=== PATIENT | male | born 1960 | race Caucasian/White ===

== ENCOUNTER 2019-03-08 21:36 | Emergency (ER) ==
[2019-03-08 21:46] VITALS: BP 164/86; TEMP 98.4; BMI 28.0
[2019-03-08] MEDS ORDERED: LEVAQUIN PO STA (22:03)
[2019-03-08] MEDS ORDERED: NORCO 7.5-325 PO STA (22:04)
--- NOTE | 2019-03-08 22:06 | ED.PDOC ---
General ED Provider: Dr. OJSE WARREN-ER Chief Complaint: Earache Stated Complaint: my ear hurts and its swollen--[place] Time Seen by Physician: 22:05 Mode of Arrival: Walk-In Information Source: Patient Exam Limitations: No limitations Primary Care Provider: UZIEL DOWNING Nursing and Triage Documentation Reviewed and Agree: Yes Does patient meet sepsis criteria?: No System Inflammatory Response Syndrome: Not Applicable Sepsis Protocol: For patient's 13 years and over: Temp is 96.8 and below OR 101 and greater Pulse >90 BPM Resp >20/minute Acutely Altered Mental Status Are patient's symptoms suggestive of a new infection, such as: -Pneumonia -Skin, Soft Tissue -Endocarditis -UTI -Bone, Joint Infection -Implantable Device -Acute Abdominal Infection -Wound Infection -Meningitis -Blood Stream Catheter Infection -Unknown EENT Complaint Exam - Ear Complaint/Exam Onset/Duration: 2 days Symptoms Are: Still present Timing: Constant Initial Severity: Mild Current Severity: Moderate Character: Reports: Aching pain, Throbbing pain Aggravating: Reports: Tugging on ear Alleviating: Reports: None Associated Signs and Symptoms: Reports: Ear swelling, Discharge. Denies: Ear trauma Vesicles to External Pinna: No Vesicles to Tragus: No TMJ Tenderness: None Tragal Tenderness: Right External Canal: Erythema, Tenderness, Swelling Material in Canal: Present: Discharge Differential Diagnoses: Otitis Externa Review of Systems - Review Of Systems Constitutional: Reports: No symptoms Eyes: Reports: No symptoms Ears, Nose, Mouth, Throat: Reports: Ear pain, Ear discharge Respiratory: Reports: No symptoms Cardiac: Reports: No symptoms GI: Reports: No symptoms : Reports: No symptoms Musculoskeletal: Reports: No symptoms Skin: Reports: No symptoms Neurological: Reports: No symptoms Endocrine: Reports: No symptoms Hematologic/Lymphatic: Reports: No symptoms All Other Systems: Reviewed and Negative Past Medical History - Past Medical History Previously Healthy: Yes Endocrine: Reports: Unknown Cardiovascular: Reports: Unknown Respiratory: Reports: Unknown Hematological: Reports: Unknown Gastrointestinal: Reports: Unknown Genitourinary: Reports: Unknown Neuro/Psych: Reports: Unknown Musculoskeletal: Reports: Unknown Cancer: Reports: Unknown - Surgical History General Surgical History: Reports: Unknown - Family History Family History: Reports: Unknown - Social History Smoking Status: Former smoker Hx Substance Use: No Alcohol Screening: Occasionally - Immunizations Tetanus Shot up to Date: (UNKNOWN) Physical Exam - Physical Exam Appearance: Well-appearing, No pain distress, Well-nourished Pain Distress: Moderate Eyes: SELIN, EOMI, Conjunctiva clear ENT: Nose normal, Oropharynx normal Neck: Supple Respiratory: Airway patent, Breath sounds clear, Breath sounds equal, Respirations nonlabored Cardiovascular: RRR GI/: Soft Musculoskeletal: Normal strength, ROM intact, No edema, No calf tenderness Skin: Warm, Dry, Normal color Neurological: Sensation intact Psychiatric: Affect appropriate, Mood appropriate Critical Care Note - Critical Care Note Total Time (mins): 0 Course - Course Orders, Labs, Meds: Orders Category Date Time Status Hydrocodone Bit/Acetaminophen [[place] 7.5-325] MEDS 03/08/19 22:04 Stat 1 tab PO ONCE STA Levofloxacin [Levaquin] MEDS 03/08/19 22:03 Stat 500 mg PO ONCE STA Medications Generic Name Dose Route Start Last Admin Trade Name Freq PRN Reason Stop Dose Admin Hydrocodone Bitart/Acetaminophen 1 tab 03/08/19 22:04 [place] 7.5-325 PO 03/08/19 22:05 ONCE STA Levofloxacin 500 mg 03/08/19 22:03 Levaquin PO 03/08/19 22:04 ONCE STA Vital Signs: Temp Pulse Resp BP Pulse Ox 03/08/19 21:37 98.4 F 77 18 164/86 H 97 Departure - Departure Time of Disposition: 22:06 Disposition: HOME SELF-CARE Discharge Problem: Otitis externa Qualifiers: Otitis externa type: swimmer's ear Chronicity: acute Laterality: right Qualified Code(s): H60.331 - Swimmer's ear, right ear Instructions: Otitis Externa (ED) Condition: Good Pt referred to PMD for follow-up: Yes IPMP verified?: No Additional Instructions: levaquin 500mg #7---floxic otic drops 10 drop into theear bid x 7 days-=--norco 7.5 mg q 4hrs prn pain #10--f/u carla downing in 1-2 days to recheck ear Allergies/Adverse Reactions: Allergies NSAIDS (Non-Steroidal Anti-Inflamma Adverse Reaction (Verified 03/08/19 21:47) Swelling Home Medications: Ambulatory Orders Tadalafil [Cialis] 5 mg PO DAILY 01/31/18 Disposition Discussed With: Patient, Family
== END 2019-03-08 22:14 | disposition home or self-care (01) ==
LOC: ED 21:36
DX: H60.331 Swimmer's ear, right ear (principal)
CPT/HCPCS: 99282